=== PATIENT | female | born 1995 | race Hispanic/Latino ===

== ENCOUNTER 2018-09-23 20:39 | Inpatient (IN) | payer SELFPAY ==
[~2018-09-23] VITALS: Ht 152.4 cm; Wt 96.3 kg
[2018-09-23 21:26] LABS: BASOPHILS % (AUTO) 1.6 % (0.0-5.0); EOSINOPHILS % (AUTO) 1.5 % (0.0-8.0); HEMATOCRIT 23.5 % (36-48); LYMPHOCYTES % (AUTO) 27.3 % (21.0-51.0); MEAN CORPUSCULAR HGB CONC 30.4 g/dL (32.0-36.0); MEAN CORPUSCULAR VOLUME 69.2 fL (79-99); MONOCYTES % (AUTO) 6.3 % (3.0-13.0); NEUTROPHILS % (AUTO) 63.3 % (40.0-77.0); PLATELET COUNT (AUTO) 467 K/uL (130-400); RED CELL DISTRIBUTION WIDTH 18.7 % (11.0-15.5); WHITE BLOOD COUNT (AUTO) 9.3 K/uL (4.8-10.8)
[2018-09-23 21:38] LABS: CREATININE 0.7 mg/dL (0.5-1.5); POTASSIUM 3.5 mmol/L (3.5-5.1)
[2018-09-23 21:50] LABS: RAPID GROUP A STREP NEGATIVE (NEGATIVE)
[2018-09-24] MEDS ORDERED: SODIUM CHLORIDE 0.9% 250 ML IV ONE
[2018-09-24] MEDS ORDERED: ONDANSETRON HCL MDV 20ML 2 MG/ML VIAL IV PRN (00:45)
[2018-09-24] MEDS ORDERED: ACETAMINOPHEN 325 MG TAB PO PRN (00:45)
[2018-09-24 06:03] LABS: BASOPHILS % (AUTO) 1.1 % (0.0-5.0); EOSINOPHILS % (AUTO) 1.2 % (0.0-8.0); HEMATOCRIT 24.9 % (36-48); LYMPHOCYTES % (AUTO) 22.2 % (21.0-51.0); MEAN CORPUSCULAR HEMOGLOBIN 21.5 pg (27.0-33.0); MEAN CORPUSCULAR HGB CONC 30.9 g/dL (32.0-36.0); MEAN CORPUSCULAR VOLUME 69.5 fL (79-99); MONOCYTES % (AUTO) 6.7 % (3.0-13.0); NEUTROPHILS % (AUTO) 68.8 % (40.0-77.0); PLATELET COUNT (AUTO) 379 K/uL (130-400); RED BLOOD CELL COUNT(AUTO) 3.59 MIL/uL (4.00-5.50); RED CELL DISTRIBUTION WIDTH 18.3 % (11.0-15.5); WHITE BLOOD COUNT (AUTO) 8.2 K/uL (4.8-10.8)
[2018-09-24 06:04] VITALS: BP 129/77
[2018-09-24 06:16] LABS: ALBUMIN 3.4 g/dL (3.5-5.0); BILIRUBIN,TOTAL 0.2 mg/dL (0.2-1.0); CREATININE 0.7 mg/dL (0.5-1.5); POTASSIUM 3.8 mmol/L (3.5-5.1); TOTAL PROTEIN, SERUM 6.8 g/dL (6.0-8.3)
[2018-09-24 07:00] VITALS: BP 123/73
[2018-09-24] MEDS: SODIUM CHLORIDE 0.9% 1000ML 1,000 ML IV SCH ×2 (08:32→16:32)
[2018-09-24] MEDS: PANTOPRAZOLE SODIUM 40 MG TABLET.DR PO SCH (09:31)
[2018-09-24 11:00] VITALS: BP 126/63
[2018-09-24 16:00] VITALS: BP 119/66
[2018-09-24 18:37] LABS: CREATINE KINASE, TOTAL 81 U/L (21-232); MYOGLOBIN 23 ng/mL (10-92); TROPONIN I < 0.04 ng/mL (0.00-0.06)
[2018-09-24 19:20] VITALS: BP 122/64
[2018-09-24] MEDS ORDERED: DIPHENHYDRAMINE HCL 25 MG CAPSULE PO SCH (20:15)
[2018-09-24 23:23] LABS: CREATINE KINASE, TOTAL 46 U/L (21-232); MYOGLOBIN 18 ng/mL (10-92); TROPONIN I < 0.04 ng/mL (0.00-0.06)
[2018-09-25 00:10] VITALS: BP 104/53
[2018-09-25] MEDS: SODIUM CHLORIDE 0.9% 1000ML 1,000 ML IV SCH ×2 (01:52→09:16)
[2018-09-25 04:00] VITALS: BP 107/62
[2018-09-25 05:41] LABS: CREATINE KINASE, TOTAL 42 U/L (21-232); MYOGLOBIN 17 ng/mL (10-92); TROPONIN I < 0.04 ng/mL (0.00-0.06)
[2018-09-25 07:51] VITALS: BP 106/56
[2018-09-25] MEDS: PANTOPRAZOLE SODIUM 40 MG TABLET.DR PO SCH (09:16)
[2018-09-25 11:45] VITALS: BP 106/61
[2018-09-25 16:15] VITALS: BP 115/75
== END 2018-09-25 19:40 | disposition home or self-care (01) | DRG 760 ==
LOC: EDH 20:39 → EDHIP 20:40 → 3DH 09-24 04:50
PROVIDERS: ADMIT Internal Medicine; ATTEND Internal Medicine
PROC: 30233N1 Transfusion of Nonautologous Red Blood Cells into Peripheral Vein, Percutaneous Approach (ICD-10-PCS; principal; 2018-09-24)
DX: N93.8 Other specified abnormal uterine and vaginal bleeding (principal); D62 Acute posthemorrhagic anemia; Z68.41 Body mass index [BMI] 40.0-44.9, adult; E66.01 Morbid (severe) obesity due to excess calories; N92.6 Irregular menstruation, unspecified; Z90.721 Acquired absence of ovaries, unilateral; Z90.79 Acquired absence of other genital organ(s); Z83.3 Family history of diabetes mellitus; Z82.5 Family history of asthma and other chronic lower respiratory diseases; Z82.49 Family history of ischemic heart disease and other diseases of the circulatory system
CPT/HCPCS: 36415; 71045; 76830; 80048; 80053; 81025; 82550; 83874; 84484; 85025; 85378; 86850; 86900; 86901; 86922; 87804; 87880; 93005; 93306; 99291; J7030; P9016; Q0163

== ENCOUNTER 2019-12-09 23:36 | Emergency (ER) | payer MEDICAID ==
[2019-12-10 00:21] LABS: CREATININE 0.9 mg/dL (0.5-1.5); POTASSIUM 3.5 mmol/L (3.5-5.1)
[2019-12-10 00:31] LABS: BASOPHILS % (AUTO) 0.5 % (0.0-5.0); EOSINOPHILS % (AUTO) 2.3 % (0.0-8.0); HEMATOCRIT 35.5 % (36-48); LYMPHOCYTES % (AUTO) 29.5 % (21.0-51.0); MEAN CORPUSCULAR HEMOGLOBIN 27.2 pg (27.0-33.0); MEAN CORPUSCULAR HGB CONC 33.2 g/dL (32.0-36.0); MEAN CORPUSCULAR VOLUME 81.8 fL (79-99); MONOCYTES % (AUTO) 7.2 % (3.0-13.0); NEUTROPHILS % (AUTO) 60.3 % (40.0-77.0); PLATELET COUNT (AUTO) 330 K/uL (130-400); RED BLOOD CELL COUNT(AUTO) 4.34 MIL/uL (4.00-5.50); RED CELL DISTRIBUTION WIDTH 15.5 % (11.0-15.5); WHITE BLOOD COUNT (AUTO) 9.2 K/uL (4.8-10.8)
[2019-12-10] MEDS ORDERED: SODIUM CHLORIDE 0.9% 1000ML 1,000 ML IV ONE (00:43)
[2019-12-10 00:44] LABS: ALBUMIN 3.4 g/dL (3.5-5.0); BILIRUBIN,TOTAL 0.1 mg/dL (0.2-1.0); TOTAL PROTEIN, SERUM 7.6 g/dL (6.0-8.3)
[2019-12-10] MEDS ORDERED: ONDANSETRON HCL 4 MG/2 ML VIAL ONE (00:44)
[2019-12-10 01:21] LABS: APPEARANCE,URINE Cloudy (CLEAR); BILIRUBIN,URINE Negative (NEGATIVE); COLOR,URINE Yellow (YELLOW); GLUCOSE, URINE (UA) Negative (NEGATIVE); KETONES,URINE Negative (NEGATIVE); LEUKOCYTE ESTERASE ,URINE Large (NEGATIVE); NITRATE,URINE Negative (NEGATIVE); OCCULT BLOOD,URINE Moderate (NEGATIVE); PH,URINE 8.5 (5.0-8.0); PROTEIN,URINE Negative (NEGATIVE)
[2019-12-10 01:30] LABS: BACTERIA,URINE Moderate /HPF (None Seen)
[2019-12-10] MEDS ORDERED: CEFTRIAXONE SODIUM 1 GM ONE (01:43)
[2019-12-10] MEDS ORDERED: SODIUM CHLORIDE 0.9% 50 ML IV ONE (01:43)
== END 2019-12-10 02:16 | disposition home or self-care (01) ==
LOC: EDH 23:36
DX: O20.0 Threatened abortion (principal); O23.41 Unspecified infection of urinary tract in pregnancy, first trimester; Z79.899 Other long term (current) drug therapy; Z3A.01 Less than 8 weeks gestation of pregnancy
CPT/HCPCS: 36415; 76801; 80053; 81001; 84702; 85025; 86900; 86901; 96374; 96375; 99284; J0696; J2405; J7030

== ENCOUNTER 2024-06-04 18:37 | Emergency (ER) | payer OTHER, BC ==
[~2024-06-04] VITALS: Ht 154.9 cm; Wt 111.1 kg
[2024-06-04 19:21] LABS: BASOPHILS # (AUTO) 0.12 K/uL (0.00-0.20); BASOPHILS % (AUTO) 0.8 % (0.0-5.0); EOSINOPHILS # (AUTO) 0.25 K/uL (0.00-0.70); EOSINOPHILS % (AUTO) 1.6 % (0.0-8.0); HEMATOCRIT 37.5 % (36-48); IMMATURE GRANULOCYTE ABSOLUTE 0.11 K/uL (0-1); LYMPHOCYTES # (AUTO) 3.3 K/uL (1.0-4.8); LYMPHOCYTES % (AUTO) 21.5 % (21.0-51.0); MEAN CORPUSCULAR HEMOGLOBIN 28.5 pg (27.0-33.0); MEAN CORPUSCULAR HGB CONC 32.8 g/dL (32.0-36.0); MONOCYTES # (AUTO) 1.1 K/uL (0.1-1.0); MONOCYTES % (AUTO) 6.8 % (3.0-13.0); NEUTROPHILS # (AUTO) 10.6 K/uL (1.8-7.7); NEUTROPHILS % (AUTO) 68.6 % (40.0-77.0); PLATELET COUNT (AUTO) 405 K/uL (130-400); RED BLOOD CELL COUNT(AUTO) 4.31 MIL/uL (4.00-5.50); RED CELL DISTRIBUTION WIDTH 13.9 % (11.0-15.5); WHITE BLOOD COUNT (AUTO) 15.4 K/uL (4.8-10.8)
[2024-06-04 19:30] LABS: INR 0.96 (0.85-1.15); PROTHROMBIN TIME 10.4 SEC (9.6-11.6)
[2024-06-04 19:34] LABS: ADD UA MICROSCOPIC YES; APPEARANCE,URINE SL CLOUDY (CLEAR); BILIRUBIN,URINE NEGATIVE (NEGATIVE); COLOR,URINE YELLOW (YELLOW); GLUCOSE, URINE (UA) NEGATIVE (NEGATIVE); KETONES,URINE NEGATIVE (NEGATIVE); LEUKOCYTE ESTERASE ,URINE MODERATE Leu/uL (NEGATIVE); NITRATE,URINE NEGATIVE (NEGATIVE); OCCULT BLOOD,URINE TRACE-INTACT (NEGATIVE); PROTEIN,URINE TRACE mg/dL (NEGATIVE); UROBILINOGEN,URINE 0.2 mg/dL (0.2-1.0)
[2024-06-04] MEDS: 0.9%NACL 1000ML 1,000 ML IV ONE (19:37)
[2024-06-04 19:39] LABS: BACTERIA,URINE RARE /HPF (None Seen); MUCUS,URINE RARE LPF (None Seen); SQUAMOUS EPITHELIAL CELL,UR MOD /HPF (0-2); YEAST,URINE BUDDING FEW /HPF (None Seen)
[2024-06-04 19:42] LABS: CREATININE 0.7 mg/dL (0.5-1.0); POTASSIUM 3.2 mmol/L (3.5-5.1)
[2024-06-04] MEDS ORDERED: IOHEXOL 350 MG/ML 100ML INFUS..BTL IV ONE (20:15)
[2024-06-04] MEDS: cefTRIAXone 1G VIAL IVPB ONE (21:25)
[2024-06-04] MEDS ORDERED: MACR100 PO (21:46)
[2024-06-04] MEDS ORDERED: CYCL10TA16 PO (21:46)
[2024-06-04] MEDS ORDERED: KETO10TA2 PO (21:46)
[2024-06-04 21:48] VITALS: BP 130/70; PULSE 90; RESP 16; O2SAT 98
== END 2024-06-04 22:01 | disposition home or self-care (01) ==
LOC: EDH 18:37
DX: S09.8XXA Other specified injuries of head, initial encounter (principal); Z79.899 Other long term (current) drug therapy; Z98.890 Other specified postprocedural states; R10.9 Unspecified abdominal pain; V89.2XXA Person injured in unspecified motor-vehicle accident, traffic, initial encounter; Y93.89 Activity, other specified; Y92.488 Other paved roadways as the place of occurrence of the external cause; Y99.8 Other external cause status
CPT/HCPCS: 99285; 70450; 96374; 96361; 84484; 80048; 84703; 85025; 85610; 85730; 87086; 81001; 36415; 73590 ×2; 72125; 71260; 74177; 93005; J0696; Q9967